=== PATIENT | male | born 1980 | race Two or more races ===

== ENCOUNTER 2019-10-30 21:57 | Emergency (ER) | payer BC ==
[~2019-10-30] VITALS: Ht 180.3 cm; Wt 115.0 kg
[2019-10-30 22:12] VITALS: BP 124/86
[2019-10-30] MEDS ORDERED: PROPOFOL 10 MG/ML, 20ML ONE (22:45)
[2019-10-30] MEDS ORDERED: PROPOFOL 10 MG/ML, 20ML IVPush ONE (23:00)
== END 2019-10-30 23:56 | disposition home or self-care (01) ==
LOC: ED 23:50
DX: S03.01XA Dislocation of jaw, right side, initial encounter (principal); X58.XXXA Exposure to other specified factors, initial encounter; Y93.89 Activity, other specified; Y92.009 Unspecified place in unspecified non-institutional (private) residence as the place of occurrence of the external cause; Y99.8 Other external cause status
CPT/HCPCS: 21480; 99285; J2704